=== PATIENT | male | born 1985 | race Caucasian/White ===

== ENCOUNTER → 2021-03-04 | Outpatient (CLI) | payer MEDICAID, OTHER | END | disposition home or self-care (01) | LOC: LABWHC1 12:02 | PROVIDERS: ATTEND Emergency Medicine | DX: Z20.822 Contact with and (suspected) exposure to COVID-19 (principal) | CPT/HCPCS: 87635 ==

== ENCOUNTER → 2021-03-05 | Outpatient (CLI) | payer MEDICAID, OTHER | END | disposition home or self-care (01) | LOC: LABWHC1 11:54 | PROVIDERS: ATTEND Emergency Medicine | DX: Z20.822 Contact with and (suspected) exposure to COVID-19 (principal) | CPT/HCPCS: 87635 ==

== ENCOUNTER 2021-03-29 15:06 | Emergency (ER) | payer MEDICAID ==
[2021-03-29 17:10] VITALS: BP 146/93; PULSE 70; RESP 16; TEMP 98.9
--- NOTE | 2021-03-29 19:45 | ED ---
General Adult HPI - General Chief complaint: Dental/Oral Stated complaint: Oral pain Time Seen by Provider: 03/29/21 19:34 Source: patient, RN notes reviewed, old records reviewed Mode of arrival: ambulatory Limitations: no limitations - History of Present Illness Initial comments: 36-year-old male with left upper dental pain. Patient tried to get into his dentist but was closed due to the holiday weekend. No fevers. - Related Data Previous Rx's Medication Instructions Recorded Clindamycin [Cleocin] 450 mg PO TID #30 cap 03/29/21 Ibuprofen [Motrin] 600 mg PO Q8HR PRN #24 tab 03/29/21 Allergies Allergy/AdvReac Type Severity Reaction Status Date / Time Penicillins Allergy Unknown Verified 03/29/21 17:10 Review of Systems ROS Statement: Those systems with pertinent positive or pertinent negative responses have been documented in the HPI. ROS Other: All systems not noted in ROS Statement are negative. Past Medical History Past Medical History: No Reported History History of Any Multi-Drug Resistant Organisms: None Reported Past Surgical History: No Surgical Hx Reported Past Psychological History: No Psychological Hx Reported Smoking Status: Never smoker Past Alcohol Use History: None Reported Past Drug Use History: Marijuana General Exam Limitations: no limitations General appearance: alert, in no apparent distress Head exam: Present: atraumatic Eye exam: Present: normal appearance, PERRL ENT exam: Present: other (Left upper dental pain, discoloration of the left upper molars. No drainable abscess.) Respiratory exam: Present: normal lung sounds bilaterally. Absent: respiratory distress, wheezes Cardiovascular Exam: Present: regular rate, normal rhythm GI/Abdominal exam: Present: soft. Absent: distended, tenderness, guarding Extremities exam: Present: normal inspection, normal capillary refill. Absent: pedal edema Neurological exam: Present: alert, oriented X3, CN II-XII intact. Absent: motor sensory deficit Psychiatric exam: Present: normal affect, normal mood Skin exam: Present: warm, dry, intact. Absent: cyanosis, diaphoretic Course Vital Signs 03/29/21 17:08 Temperature 98.9 F Pulse Rate 70 Respiratory 16 Rate Blood Pressure 146/93 O2 Sat by Pulse 100 Oximetry Medical Decision Making - Medical Decision Making 36-year-old male with left upper dental pain. He does have evidence of likely cavity in this tooth. Patient is otherwise well-appearing with stable vitals. I recommend he follow up with his dentist. He will be started on antibiotics and Motrin for pain. Return parameters discussed. Disposition Clinical Impression: Toothache, Dental caries Disposition: HOME SELF-CARE Condition: Good Instructions (If sedation given, give patient instructions): Toothache (ED) Additional Instructions: Follow-up with her dentist as soon as possible. Prescriptions: Clindamycin [Cleocin] 450 mg PO TID #30 cap Ibuprofen [Motrin] 600 mg PO Q8HR PRN #24 tab PRN Reason: Pain Is patient prescribed a controlled substance at d/c from ED?: No Referrals: None,Stated [Primary Care Provider] - 1-2 days Time of Disposition: 19:40
== END 2021-03-29 19:57 | disposition home or self-care (01) ==
LOC: EC 15:06
DX: K02.9 Dental caries, unspecified (principal); F12.90 Cannabis use, unspecified, uncomplicated
CPT/HCPCS: 99282

== ENCOUNTER → 2021-05-07 | Outpatient (CLI) | payer MEDICAID, OTHER | END | disposition home or self-care (01) | LOC: LABMAIN 06:24 | PROVIDERS: ATTEND Emergency Medicine | DX: R05.9 Cough, unspecified (principal) | CPT/HCPCS: 87635 ==